=== PATIENT | female | born 1985 | race Caucasian/White ===

== ENCOUNTER 2016-07-08 10:10 | Inpatient (IN) | payer OTHER ==
[~2016-07-08 10:10] MED LIST: CLAR10TA7 PO; METO10TA PO; PREN0.01 PO; PYRI1TAB5 PO
[2016-07-12] VITALS (15 sets, daily range): BP systolic 135–149; BP diastolic 71–98; PULSE 67–98; RESP 8–20; TEMP 97.9–99; O2SAT 98–100
[2016-07-12 11:27] LABS: AUTOMATED NEUTROPHIL # 6.5 TH/MM3 (1.8-7.7); BASOPHIL % 0.4 % (0.0-2.0); EOSINOPHIL % 0.3 % (0.0-4.0); HEMATOCRIT 29.9 % (35.0-46.0); HEMO FLAGS DIFF FINAL; LYMPH % 17.7 % (9.0-44.0); LYMPHOCYTE # 1.5 TH/MM3 (1.0-4.8); MEAN CELL VOLUME 87.1 FL (80.0-100.0); MEAN CORPUSCULAR HEMOGLOBIN 29.9 PG (27.0-34.0); MEAN CORPUSCULAR HGB CONC 34.4 % (32.0-36.0); MONO % 6.9 % (0.0-8.0); NEUT % 74.7 % (16.0-70.0); PLATELET COUNT 293 TH/MM3 (150-450); RED BLOOD COUNT 3.43 MIL/MM3 (4.00-5.30); RED CELL DISTRIBUTION WIDTH 12.8 % (11.6-17.2); WHITE BLOOD COUNT 8.7 TH/MM3 (4.0-11.0)
[2016-07-12] MEDS ORDERED: LACTATED RINGER'S 1000 ML INJ 1,000 ML IV ONE (11:28)
[2016-07-12 11:40] LABS: BACTERIA, URINE OCC /hpf; BLOOD, URINE NEG (NEG); COMMENT (UR) CULT NOT INDICATED; CULTURE IF INDICATED CULT NOT INDICATED; GLUCOSE,URINE NEG (NEG); KETONE, URINE 40 mg/dL (NEG); MUCUS URINE FEW /lpf (OCC); NITRITE,URINE NEG (NEG); PH, URINE 6.5 (5.0-8.5); SQUAMOUS EPITHELIAL CELL URINE 1 /hpf (0-5); URINE COLOR YELLOW (YELLW/STRAW)
[2016-07-12] MEDS ORDERED: LACTATED RINGER'S 1000 ML INJ 1,000 ML IV SCH ×2 (11:58→19:31)
[2016-07-12] MEDS ORDERED: ceFAZolin 2 GM PREMIX 50 ML IV SCH (12:30)
[2016-07-12] MEDS ORDERED: CITRIC ACID-SODIUM CITRATE LIQ 30 ML UDC PO SCH (13:00)
[2016-07-12] MEDS ORDERED: ACETAMINOPHEN 1000 MG/100 ML VIAL IV ONE (13:22)
[2016-07-12] MEDS ORDERED: MORPHINE SULFATE PF 5 MG/10 ML VIAL ONE (13:22)
[2016-07-12] MEDS ORDERED: OXYTOCIN 10 UNIT/ML AMP ONE (13:22)
[2016-07-12] MEDS ORDERED: EPIDURAL-NALOXONE HCL 0.4 MG/ML AMP IV PRN (13:23)
[2016-07-12] MEDS ORDERED: EPIDURAL-DO NOT ADMINISTER ANTICOAGULANTS PRN (13:23)
[2016-07-12] MEDS ORDERED: EPIDURAL-DIPHENHYDRAMINE HCL 50 MG/ML VIAL IV PUSH PRN (13:23)
[2016-07-12] MEDS ORDERED: EPIDURAL-DIPHENHYDRAMINE HCL 50 MG CAP PO PRN (13:23)
[2016-07-12] MEDS ORDERED: EPIDURAL-NO SYSTEMIC NARCOTICS PRN (13:23)
--- NOTE | 2016-07-12 14:30 | PD.OB.DELI ---
Procedure Note Section Procedure Pre Op Diagnosis: (1) History of classical section (2) 37 weeks gestation of Post Op Diagnosis: (1) History of classical section (2) 37 weeks gestation of Performed by Bruce Ng Procedure: Repeat Low Transverse Sec Indication for delivery: Desired elective repeat Informed consent obtained: For anesthesia, For procedure Confirmed correct: Patient, Procedure, Time-out taken Anesthesia: Spinal Urinary catheter: Inserted using sterile technique, To dependent drainage Sterile preparation: Duraprep Position: Supine with wedge to left side Operative Features Skin Incision: Pfannenstiel Uterine Incision: Low transverse w/knife / blunt ext Membranes Ruptured: Artificially Presentation: Occiput anterior Delivery of : Assisted (vacuum), Uneventful : Male, Single One Minute : 9 Five Minute : 9 Weight: 6#15 Status of : Viable Placenta delivered: Intact Medications: Antibiotics Estimated blood loss: 300 Procedure tolerated: Well Maternal Condition: Stable Condition: Stable Bruce Ng MD Jul 12, 2016 14:30
[2016-07-12] MEDS ORDERED: SODIUM CHLORIDE 0.9% FLUSH 10 ML FLUSH IV FLUSH PRN (14:45)
[2016-07-12] MEDS ORDERED: SIMETHICONE 80 MG CHEWABLE TAB PO PRN (14:45)
[2016-07-12] MEDS ORDERED: OXYTOCIN 30 UNITS-500ML PREMIX 500 ML IV ONE (14:45)
[2016-07-12] MEDS ORDERED: ACETAMINOPHEN/HYDROcodone 325 MG/5 MG TAB PO PRN (14:45)
[2016-07-12] MEDS ORDERED: KETOROLAC TROMETHAMINE 60 MG/2 ML (IM) VIAL IM PRN (14:45)
[2016-07-12] MEDS ORDERED: OXYTOCIN 30 UNITS-500ML PREMIX 500 ML ONE (15:11)
[2016-07-12] MEDS: IBUPROFEN 600 MG TAB PO PRN (22:43)
[2016-07-12] MEDS: ACETAMINOPHEN/HYDROcodone 325 MG/5 MG TAB PO PRN (22:43)
[2016-07-13 00:15] VITALS: BP 121/70; PULSE 67; RESP 18; TEMP 98.2
[2016-07-13] MEDS ORDERED: OXYTOCIN 30 UNITS-500ML PREMIX 500 ML IV PRN (00:45)
[2016-07-13 04:30] VITALS: BP 123/73; PULSE 74; RESP 18; TEMP 98.2
[2016-07-13] MEDS: IBUPROFEN 600 MG TAB PO PRN ×4 (04:47→23:16)
[2016-07-13] MEDS: ACETAMINOPHEN/HYDROcodone 325 MG/5 MG TAB PO PRN ×5 (04:47→22:01)
[2016-07-13 07:02] LABS: AUTOMATED NEUTROPHIL # 12.4 TH/MM3 (1.8-7.7); BASOPHIL % 0.2 % (0.0-2.0); EOSINOPHIL % 0.1 % (0.0-4.0); HEMATOCRIT 29.1 % (35.0-46.0); HEMO FLAGS DIFF FINAL; LYMPH % 11.9 % (9.0-44.0); LYMPHOCYTE # 1.9 TH/MM3 (1.0-4.8); MEAN CORPUSCULAR HEMOGLOBIN 29.6 PG (27.0-34.0); MEAN CORPUSCULAR HGB CONC 33.7 % (32.0-36.0); MONO % 9.2 % (0.0-8.0); NEUT % 78.6 % (16.0-70.0); PLATELET COUNT 272 TH/MM3 (150-450); RED BLOOD COUNT 3.31 MIL/MM3 (4.00-5.30); RED CELL DISTRIBUTION WIDTH 12.2 % (11.6-17.2); WHITE BLOOD COUNT 15.8 TH/MM3 (4.0-11.0)
[2016-07-13 08:50] VITALS: BP 121/75; PULSE 70; RESP 18; TEMP 98.3
[2016-07-13] MEDS: SODIUM CHLORIDE 0.9% FLUSH 10 ML FLUSH IV FLUSH SCH (09:57)
--- NOTE | 2016-07-13 10:32 | HHI.HP ---
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 Para: 1 : 2 History Past Medical History Medical History: Denies Significant Hx Past Surgical History Narrative Surgical Classical CS Surgical History: No Previous Surgery Family History Family History: Negative Social History Alcohol Use: No Tobacco Use: No Substance Abuse: No Allergies-Medications (Allergen,Severity, Reaction): Coded Allergies: Percocet (Verified Allergy, Unknown, GI UPSET/HIVES , 07/12/16) Home Meds Reported Medications Pyridoxine HCl (B6 Natural)100 Mg Tab1 Tab PO DAILY 04/04/14 Multivit/Min/Fol Ac/Iron/Pren ( Vit ( Plus)) Tab1 Tab PO DAILY 04/04/14 Loratadine (Claritin)10 Mg Tab10 Mg PO DAILY 04/04/14 Metoclopramide Hcl (Reglan)10 Mg Tab10 Mg PO PRN (NAUSEA) 04/04/14 Review of Systems Except as stated in HPI: all other systems reviewed are Neg Physical Exam Vital Signs Date Time Temp Pulse Resp B/P Pulse Ox O2 Delivery O2 Flow Rate FiO2 07/13/16 08:50 98.3 70 18 121/75 07/13/16 04:30 98.2 74 18 123/73 07/13/16 00:15 98.2 07/13/16 00:15 67 18 121/70 07/12/16 19:45 98.3 71 18 139/86 07/12/16 16:07 99.0 07/12/16 15:24 97.9 07/12/16 15:17 76 18 139/92 99 07/12/16 15:01 70 18 143/90 98 07/12/16 14:46 72 8 98 07/12/16 14:46 18 07/12/16 14:45 67 136/71 07/12/16 14:34 74 18 139/86 100 07/12/16 14:25 18 07/12/16 14:22 91 138/95 99 07/12/16 14:22 98.0 07/12/16 13:00 93 149/90 07/12/16 12:30 88 143/96 3/31/17 12:05 20 07/12/16 12:00 89 135/91 07/12/16 11:30 98 137/98 Narrative GENERAL: Well-nourished, well-developed patient. SKIN: Warm and dry. HEAD: Normocephalic and atraumatic. EYES: No scleral icterus. No injection or drainage. ENT: No nasal drainage noted. Mucous membranes pink. Airway patent. NECK: Supple, trachea midline. No JVD. CARDIOVASCULAR: Regular rate and rhythm without murmurs, gallops, or rubs. RESPIRATORY: Breath sounds equal bilaterally. No accessory muscle use. BREASTS: Bilateral exam showed no masses , no retractions, no nipple discharge. ABDOMEN/GI: Abdomen soft, non-tender, bowel sounds present, no rebound, no guarding Gravid to [-] weeks size Fundal Height: [-] GENITOURINARY: External Genitalia: intact and normal in appearance BUS glands: [-] Cervix: [-] Dilatation: [-] Effacement: [-] Station: [-] Presentation: [-] Membranes: [intact or ruptured] Uterine Contractions: [-] FHT's: Category: [-] Baseline: [-] Reactive: [-] Variability: [-] Decels: [-] EXTREMITIES: No cyanosis or edema. BACK: Nontender without obvious deformity. No CVA tenderness. NEUROLOGICAL: Awake and alert. Motor and sensory grossly within normal limits. Five out of 5 muscle strength in all muscle groups. Normal speech. Data Data Vital Signs Reviewed: Yes Orders Complete Blood Count With Diff (07/12/16 11:09) Type And Screen (07/12/16 11:09) Urinalysis - C+S If Indicated (07/12/16 11:09) Specimen To Be Collected PRN (07/12/16 11:09) Admit To Inpatient (07/12/16 ) Code Status (07/12/16 11:28) Vital Signs (Adult) .ON ADMISSION (07/12/16 11:28) Activity Oob Ad Sadie (07/12/16 11:28) ^ Heart (07/12/16 11:28) Urinary Catheter Management PILAR.Q8H (07/12/16 11:28) ^ Preps (07/12/16 11:28) Scd / Yassine / Foot Pump PILAR.QSHIFT (07/12/16 11:28) ^ Ultrasound For Locatio (07/12/16 11:28) Diet Npo (07/12/16 Lunch) Lactated Ringer's 1000 Ml Inj (Lr 1000 M (07/12/16 11:28) Lactated Ringer's 1000 Ml Inj (Lr 1000 M (07/12/16 11:58) Cefazolin 2 Gm Premix (Ancef 2 Gm Premix (07/12/16 12:30) Citric Acid-Sodium Citrate Liq (Bicitra (07/12/16 13:00) Inpatient Certification (07/12/16 ) Morphine Pf Inj (Duramorph Pf 0.5 Mg/Ml (07/12/16 13:22) Oxytocin Inj (Pitocin Inj) (07/12/16 13:22) Acetaminophen Inj (Ofirmev Inj) (07/12/16 13:22) Vital Signs (Adult) Q4HX24,Q12H (07/12/16 14:31) Activity Bed Rest (07/12/16 14:31) ^ Discontinue (07/13/16 14:31) ^ Remove Dressing (07/13/16 14:31) ^ Rhogam (07/12/16 14:31) Lactated Ringer's 1000 Ml Inj (Lr 1000 M (07/12/16 19:31) Oxytocin 30 Units-500ml Premix (Pitocin (07/12/16 14:45) Oxytocin 30 Units-500ml Premix (Pitocin (07/13/16 00:45) Sodium Chloride 0.9% Flush (Ns Flush) (07/12/16 21:00) Sodium Chloride 0.9% Flush (Ns Flush) (07/12/16 14:45) Simethicone Chew (Mylicon Chew) (07/12/16 14:45) Ibuprofen (Motrin) (07/12/16 14:45) Ketorolac Inj (Toradol Inj) (07/12/16 14:45) Rtnblfg-Hsyvv-Osiacro Inj (M-M-R Ii Inj) (07/13/16 16:00) Xgyv-Vie-Vvqogh (Booster) Inj (Boostrix (07/13/16 16:00) Complete Blood Count With Diff (07/13/16 06:00) Remove Urinary Catheter .ONCE (07/13/16 14:31) Acetamin-Hydrocod 325-5 Mg ([place] 5-325 (07/12/16 14:45) Acetamin-Hydrocod 325-5 Mg ([place] 5-325 (07/12/16 14:45) Oxytocin 30 Units-500ml Premix (Pitocin (07/12/16 15:11) [facility] [place] [facility] [place] (07/12/16 13:23) Naloxone Inj (Narcan Inj) (07/12/16 13:23) Diphenhydramine Inj (Benadryl Inj) (07/12/16 13:23) Diphenhydramine (Benadryl) (07/12/16 13:23) [facility] [place] [facility] [place] (07/12/16 13:23) Diet Regular Basic (07/12/16 Dinner) ^ Instruction (07/12/16 16:57) Labs Laboratory Tests Test 07/12/16 07/13/16 11:05 06:28 White Blood Count 8.7 15.8 Red Blood Count 3.43 3.31 Hemoglobin 10.3 9.8 Hematocrit 29.9 29.1 Mean Corpuscular Volume 87.1 88.0 Mean Corpuscular Hemoglobin 29.9 29.6 Mean Corpuscular Hemoglobin 34.4 33.7 Concent Red Cell Distribution Width 12.8 12.2 Platelet Count 293 272 Mean Platelet Volume 7.4 7.4 Neutrophils (%) (Auto) 74.7 78.6 Lymphocytes (%) (Auto) 17.7 11.9 Monocytes (%) (Auto) 6.9 9.2 Eosinophils (%) (Auto) 0.3 0.1 Basophils (%) (Auto) 0.4 0.2 Neutrophils # (Auto) 6.5 12.4 Lymphocytes # (Auto) 1.5 1.9 Monocytes # (Auto) 0.6 1.4 Eosinophils # (Auto) 0.0 0.0 Basophils # (Auto) 0.0 0.0 CBC Comment DIFF FINAL DIFF FINAL Differential Comment Urine Color YELLOW Urine Turbidity CLEAR Urine pH 6.5 Urine Specific [place] 1.017 Urine Protein TRACE Urine Glucose (UA) NEG Urine Ketones 40 Urine Occult Blood NEG Urine Nitrite NEG Urine Bilirubin NEG Urine Urobilinogen LESS THAN 2.0 Urine Leukocyte Esterase TRACE Urine RBC 1 Urine WBC 1 Urine Squamous Epithelial 1 Cells Urine Bacteria OCC Urine Mucus FEW Microscopic Urinalysis Comment CULT NOT INDICATED Blood Type A NEGATIVE Antibody Screen NEGATIVE Assessment/Plan Problem List: (1) 37 weeks gestation of (2) History of classical section Discharge Planning 2-3 days Bruce Ng MD Jul 13, 2016 10:32
--- NOTE | 2016-07-13 10:33 | HHI.OB ---
Subjective Post Day: 1 Remarks doing well Objective Vitals/I&O Vital Signs Date Time Temp Pulse Resp B/P Pulse Ox O2 Delivery O2 Flow Rate FiO2 07/13/16 08:50 98.3 70 18 121/75 07/13/16 04:30 98.2 74 18 123/73 07/13/16 00:15 98.2 07/13/16 00:15 67 18 121/70 07/12/16 19:45 98.3 71 18 139/86 07/12/16 16:07 99.0 07/12/16 15:24 97.9 07/12/16 15:17 76 18 139/92 99 07/12/16 15:01 70 18 143/90 98 07/12/16 14:46 72 8 98 07/12/16 14:46 18 07/12/16 14:45 67 136/71 07/12/16 14:34 74 18 139/86 100 07/12/16 14:25 18 07/12/16 14:22 91 138/95 99 07/12/16 14:22 98.0 07/12/16 13:00 93 149/90 07/12/16 12:30 88 143/96 07/12/16 12:05 20 07/12/16 12:00 89 135/91 07/12/16 11:30 98 137/98 Objective Remarks GENERAL: Well-nourished, well-developed patient. . ABDOMEN/GI: Abdomen soft, non-tender. Fundus: Firm, non-tender at umbilicus. GENITOURINARY: Light to moderate bleeding. EXTREMITIES: No cyanosis or edema, non-tender, without signs of DVT. Medications and IVs Current Medications Medications (Trade) Dose Ordered Sig/Trace Route Start Time Stop Time Status Last Admin (Lr 1000 ml Inj) 1,000 ml @ 100 mls/hr Q10H IV 07/12/16 19:31 07/13/16 15:30 (NS Flush) 2 ml BID IV FLUSH 07/12/16 21:00 (NS Flush) 2 ml UNSCH PRN IV FLUSH 07/12/16 14:45 (Mylicon Chew) 80 mg QID PRN PO 07/12/16 14:45 (Motrin) 600 mg Q6H PRN PO 3/31/17 14:45 07/13/16 04:47 (Toradol Inj) 30 mg Q6H PRN IM 07/12/16 14:45 07/13/16 14:44 07/12/16 17:00 (M-M-R Ii Inj) 0.5 ml ONCE ONCE SQ 07/13/16 16:00 07/13/16 16:01 (Boostrix Inj) 0.5 ml ONCE ONCE IM 07/13/16 16:00 07/13/16 16:01 ([place] 5-325 Mg) 1 tab Q4H PRN PO 07/12/16 14:45 07/13/16 08:36 ([place] 5-325 Mg) 2 tab Q4H PRN PO 07/12/16 14:45 Miscellaneous Information NO SYSTEMIC NARCOTICS TO BE GIVEN FO... UNSCH PRN .XX 07/12/16 13:23 07/13/16 13:22 (Narcan Inj) 0.4 mg UNSCH PRN IV 07/12/16 13:23 07/13/16 13:22 (Benadryl Inj) 25 mg Q6H PRN IV PUSH 07/12/16 13:23 07/13/16 13:22 (Benadryl) 50 mg Q6H PRN PO 07/12/16 13:23 07/13/16 13:22 Miscellaneous Information ALL NURSING DEPARTMENTS UNSCH PRN .XX 07/12/16 13:23 07/13/16 13:22 Assessment/Plan Problem List: (1) 37 weeks gestation of (2) History of classical section Discharge Planning 2-3 days Bruce Ng MD Jul 13, 2016 10:33
[2016-07-13] MEDS ORDERED: MEASLES, MUMPS, RUBELLA VACCINE 0.5 ML VIAL SQ ONE (16:00)
[2016-07-13] MEDS ORDERED: DIPHTH/TETANUS/ACEL PERTUSSIS (BOOSTER) 0.5 ML VIAL/PFS IM ONE (16:00)
[2016-07-13 16:10] VITALS: BP 134/77; PULSE 86; RESP 16; TEMP 98.1
[2016-07-13] MEDS: DOCUSATE SODIUM 50 MG/SENNA 8.6 MG TAB PO PRN (17:06)
[2016-07-13 20:30] VITALS: BP 150/94; PULSE 68; RESP 16; TEMP 97.7
[2016-07-13 21:18] VITALS: BP 141/90; PULSE 72
[2016-07-14] MEDS: ACETAMINOPHEN/HYDROcodone 325 MG/5 MG TAB PO PRN ×6 (02:38→22:32)
[2016-07-14] MEDS: IBUPROFEN 600 MG TAB PO PRN ×3 (06:36→18:31)
[2016-07-14 08:25] VITALS: BP 143/88; PULSE 69; RESP 18; TEMP 97.4
[2016-07-14] MEDS: SODIUM CHLORIDE 0.9% FLUSH 10 ML FLUSH IV FLUSH SCH (09:00)
--- NOTE | 2016-07-14 10:46 | HHI.OB ---
Subjective Post Day: 2 Remarks doing well Objective Vitals/I&O Vital Signs Date Time Temp Pulse Resp B/P Pulse Ox O2 Delivery O2 Flow Rate FiO2 07/14/16 08:25 97.4 69 18 143/88 07/13/16 21:18 72 141/90 07/13/16 20:30 150/94 07/13/16 20:30 97.7 68 16 07/13/16 16:10 98.1 86 16 134/77 Objective Remarks GENERAL: Well-nourished, well-developed patient. . ABDOMEN/GI: Abdomen soft, non-tender. Fundus: Firm, non-tender at umbilicus. GENITOURINARY: Light to moderate bleeding. EXTREMITIES: No cyanosis or edema, non-tender, without signs of DVT. Medications and IVs Current Medications Medications (Trade) Dose Ordered Sig/Trace Route Start Time Stop Time Status Last Admin (NS Flush) 2 ml BID IV FLUSH 07/12/16 21:00 (NS Flush) 2 ml UNSCH PRN IV FLUSH 07/12/16 14:45 (Mylicon Chew) 80 mg QID PRN PO 07/12/16 14:45 07/13/16 17:07 (Motrin) 600 mg Q6H PRN PO 07/12/16 14:45 07/14/16 06:36 ([place] 5-325 Mg) 1 tab Q4H PRN PO 07/12/16 14:45 07/14/16 10:36 ([place] 5-325 Mg) 2 tab Q4H PRN PO 07/12/16 14:45 07/13/16 18:05 (Deanna-Colace) 2 tab Q12H PRN PO 07/13/16 17:00 07/13/16 17:06 Assessment/Plan Problem List: (1) 37 weeks gestation of (2) History of classical section Attending Attestation in am Bruce Ng MD Jul 14, 2016 10:46
[2016-07-14] MEDS: DOCUSATE SODIUM 50 MG/SENNA 8.6 MG TAB PO PRN ×2 (10:49→22:29)
[2016-07-14 16:20] VITALS: BP 148/97; PULSE 75; RESP 18; TEMP 98.4
[2016-07-14 20:37] VITALS: BP 136/88; PULSE 81; RESP 17; TEMP 98.1
--- NOTE | 2016-07-14 22:46 | HHI.DCPOC ---
Discharge Care Plan Diagnosis: (1) delivery delivered Report Symptoms to Your Doctor -Temperate above 100.5 degrees -Redness, of incision or excessive or foul smelling drainage -Unusual pain or calf pain -Increased vaginal bleeding -Painful or difficulty urinating -Feelings of extreme sadness or anxiety after 2 weeks Goals to Promote Your Health * To prevent worsening of your condition and complications * To maintain your health at the optimal level Directions to Meet Your Goals Take your medications as prescribed Follow your dietary instruction Follow activity as directed Ensure plenty of rest for recovery Drink fluids for hydration Keep your appointments as scheduled Take your immunizations and boosters as scheduled If your symptoms worsen call your PCP, if no PCP go to Urgent Care Center or Emergency Room Smoking is Dangerous to Your Health. Avoid second hand smoke Call the 24-hour crisis hotline for domestic abuse at Bruce Ng MD Jul 14, 2016 22:46
[2016-07-15] MEDS: IBUPROFEN 600 MG TAB PO PRN ×2 (03:05→09:41)
[2016-07-15] MEDS: ACETAMINOPHEN/HYDROcodone 325 MG/5 MG TAB PO PRN ×2 (03:05→07:38)
[2016-07-15] MEDS: SODIUM CHLORIDE 0.9% FLUSH 10 ML FLUSH IV FLUSH SCH (07:44)
--- NOTE | 2016-07-15 07:50 | HHI.OB ---
Subjective Post Day: 3 Remarks doing well slight asymptomatic elevation in BP, consistent with end of Objective Vitals/I&O Vital Signs Date Time Temp Pulse Resp B/P Pulse Ox O2 Delivery O2 Flow Rate FiO2 07/14/16 20:37 81 136/88 07/14/16 20:37 98.1 17 07/14/16 16:20 98.4 75 18 148/97 07/14/16 08:25 97.4 69 18 143/88 Objective Remarks GENERAL: Well-nourished, well-developed patient. . ABDOMEN/GI: Abdomen soft, non-tender. Fundus: Firm, non-tender at umbilicus. GENITOURINARY: Light to moderate bleeding. EXTREMITIES: No cyanosis or edema, non-tender, without signs of DVT. Medications and IVs Current Medications Medications (Trade) Dose Ordered Sig/Trace Route Start Time Stop Time Status Last Admin (NS Flush) 2 ml BID IV FLUSH 07/12/16 21:00 (NS Flush) 2 ml UNSCH PRN IV FLUSH 07/12/16 14:45 (Mylicon Chew) 80 mg QID PRN PO 07/12/16 14:45 07/13/16 17:07 (Motrin) 600 mg Q6H PRN PO 07/12/16 14:45 07/15/16 03:05 ([place] 5-325 Mg) 1 tab Q4H PRN PO 07/12/16 14:45 07/15/16 07:38 ([place] 5-325 Mg) 2 tab Q4H PRN PO 07/12/16 14:45 07/13/16 18:05 (Deanna-Colace) 2 tab Q12H PRN PO 07/13/16 17:00 07/14/16 22:29 Assessment/Plan Problem List: (1) 37 weeks gestation of (2) History of classical section Discharge Planning dc today Bruce Ng MD Jul 15, 2016 07:50
[2016-07-15] MEDS ORDERED: IBUP-232 PO (07:52)
[2016-07-15] MEDS ORDERED: HYDR-3533 PO (07:52)
--- NOTE | 2016-07-15 07:54 | HHI.DS ---
Admission Date Jul 12, 2016 at 10:26 Discharge Date: Jul 15, 2016 Admitting Diagnosis Diagnosis: (1) Bicornuate uterus during , delivered Diagnosis: Principal (2) delivery delivered Diagnosis: Principal (3) 37 weeks gestation of Diagnosis: Secondary : Repeat : Male, Single Brief History for CS repeat at 37 weeks because of classical CS with unicornuate uterus Hospital Course doing well pain controlled dc hme ppd #3 Pt Condition on Discharge: Good Discharge Disposition: Discharge Home Discharge Instructions Diet Instructions: As Tolerated, No Restrictions Activities You Can Perform: Pelvic Rest Activities to Avoid: Driving for 24 hrs Follow up Referrals: PHARMACEUTICAL ANALYST - 2 Weeks @ [facility] with Bruce Ng MD New Medications: Hydrocodone-Acetaminophen (Lortab) 5-325 Mg Tab 1-2 TAB PO Q6H PRN PAIN #30 Ref 0 TAB Ibuprofen (Ibuprofen) 600 Mg Tab 600 MG PO Q6H PRN CRAMPING #30 TAB Discontinued Medications: Loratadine (Claritin) 10 Mg Tab 10 MG PO DAILY TAB Metoclopramide Hcl (Reglan) 10 Mg Tab 10 MG PO PRN NAUSEA TAB Multivit/Min/Fol Ac/Iron/Pren ( Vit ( Plus)) Tab 1 TAB PO DAILY TAB Pyridoxine HCl (B6 Natural) 100 Mg Tab 1 TAB PO DAILY Bruce Ng MD Jul 15, 2016 07:54
[2016-07-15 08:30] VITALS: PULSE 84; RESP 16
[2016-07-15 08:40] VITALS: BP 146/91
--- NOTE | 2016-07-16 18:10 | MP ---
cc: CHRIS NG M.D. DATE OF SURGERY: 07/12/2016 PROCEDURE: Repeat low transverse section. PREOPERATIVE DIAGNOSIS Previous classical section currently 37 weeks . POSTOPERATIVE DIAGNOSIS Previous classical section currently [address] Chris Ng ESTIMATED BLOOD LOSS 300 cc. 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 PROCEDURE IN DETAIL After informed consent the patient was taken to the operating room where she was placed under spinal anesthesia, placed in supine position, left lateral tilt. The vagina, perineum and vagina prepped and draped in normal sterile fashion. After adequate anesthesia assured and a time out was taken, Pfannenstiel skin incision was carried sharply to the skin to the fascia. The fascia nicked in the midline. The incision was carried laterally using Stallings scissors. The rectus muscles dissected off the fascia with sharp and blunt dissection. The peritoneum was entered bluntly with a finger. The incision was extended laterally using blunt traction. The bladder blade was placed in the abdomen. A bladder flap was developed by dissecting the bladder of the lower uterine segment and then a low transverse uterine incision was made. The lower uterine segment was slightly thin from previous classical section. A hand was placed in the uterus. The 's head was guided through the incision using fundal pressure. We could not readily deliver the head, so a vacuum was applied to the occiput portion of the of the infant, with gentle traction for less than five seconds just to elevated the head, and the infant delivered with fundal pressure. A nuchal cord was reduced. The baby was delivered the remaining portion of the way. The cord was allowed to pulse for one minute prior to clamping it. We clamped it, cut it, and the infant was handed to pediatrics in attendance. Cord blood was collected. The placenta was delivered manually. The uterosacrals were exteriorized, wiped free from all remaining products of conception. The uterine incision was then closed with running locking stitch of chromic suture. Good hemostasis was achieved. The uterus placed back in the abdomen noted to be hemostatic. The peritoneum was closed with chromic suture. The fascia was closed with Vicryl suture, and the skin was closed with subcuticular stitch. Each layer was noted to be hemostatic prior to closure. The patient tolerated the procedure well. MD ALLISON Miranda/SHELIA /2:38 PM /5:39 PM
== END 2016-07-15 11:17 | disposition home or self-care (01) | DRG 766 ==
LOC: H2EB 07-12 10:26 → H1EA 07-12 15:52
PROVIDERS: ADMIT Obstetrics & Gynecology; ATTEND Obstetrics & Gynecology
PROC: 10D00Z1 Extraction of Products of Conception, Low, Open Approach (ICD-10-PCS; principal; 2016-07-12)
PROC: 10907ZC Drainage of Amniotic Fluid, Therapeutic from Products of Conception, Via Natural or Artificial Opening (ICD-10-PCS; 2016-07-12)
DX: O34.212 Maternal care for vertical scar from previous cesarean delivery (principal); O34.593 Maternal care for other abnormalities of gravid uterus, third trimester; Q51.3 Bicornate uterus; Z37.0 Single live birth; Z3A.37 37 weeks gestation of pregnancy
CPT/HCPCS: 59025; 81001; 85025; 86850; 86900; 86901; J0131; J0690; J1885; J2274; J2590; J7120

== ENCOUNTER 2017-02-21 09:29 | Emergency (ER) | payer OTHER ==
[~2017-02-21] VITALS: Ht 165.1 cm; Wt 60.0 kg
[~2017-02-21 09:29] MED LIST changes: -CLAR10TA7 PO; +HYDR-3533 PO; +IBUP-232 PO; -METO10TA PO; -PREN0.01 PO; -PYRI1TAB5 PO
[2017-02-21 09:42] VITALS: BP 134/65; PULSE 91; RESP 16; TEMP 98.3; O2SAT 98
[2017-02-21] MEDS ORDERED: PREN29TA PO (09:48)
[2017-02-21] MEDS ORDERED: BIOT10TA PO (09:48)
[2017-02-21] MEDS ORDERED: ADDE10XR PO (09:48)
[2017-02-21] MEDS ORDERED: CETI10CA3 PO (09:48)
--- NOTE | 2017-02-21 10:41 | PD ---
HPI Chief Complaint: Back/ Neck Pain or Injury Time Seen by Provider: 10:29 Travel History International Travel<30 days: No Contact w/Intl Traveler<30days: No Traveled to known affect area: No History of Present Illness HPI 31-year-old female female presents to emergency Department complaining of lumbar pain with radiation of pain down her left leg for 1 day. States she was lifting her baby yesterday morning and felt an instant sharp pain in her lower back. She came in today because it is worsening. Back flexion and rest decrease pain, extension and walking increases pain. She has radiation of her pain from her lower left back to her left leg down to her toes that is positional. Muscle relaxers did not help relieve her pain. Patient denies fever , chills, history of drug use, personal history cancer, loss of bowel or bladder function. Patient is never had this problem before. Of note patient had in June of this year. Otherwise denies chronic medical history. PFSH Past Medical History ?: Not : 1 Past Surgical History Neurologic Surgery: Yes (UTERINE FIBROID REMOVED) Other Surgery: Yes (DEVIATED SEPTUM REPAIR) Social History Alcohol Use: No Tobacco Use: No Substance Use: No Allergies-Medications (Allergen,Severity, Reaction): Coded Allergies: acetaminophen (Unverified Allergy, Unknown, GI UPSET/HIVES , 02/21/17) oxycodone (Unverified Allergy, Unknown, GI UPSET/HIVES , 02/21/17) Reported Meds & Prescriptions Reported Meds & Active Scripts Active Zofran (Ondansetron HCl) 4 Mg Tab 4 Mg PO Q8HR PRN 5 Days Medrol Dosepak (Methylprednisolone) 4 Mg Dspk 4 Mg PO DIRECTED Per Pharmacist direction Tramadol (Tramadol HCl) 50 Mg Tab 50 Mg PO Q8H PRN 3 Days Reported Biotin 10 Mg Tab 10 Mg PO DAILY Plus Iron 29-1 mg ( Vit-Iron Carbonyl) 29 Mg Iron-1 Mg Tab 1 Tab PO DAILY Zyrtec (Cetirizine HCl) 10 Mg Capsule 1 Cap PO DAILY Adderall Xr 24 HR (Amphetamine/Dextroamphetamine) 10 Mg Cap 10 Mg PO DAILY Once daily in the morning. Review of Systems Except as stated in HPI: all other systems reviewed are Neg Physical Exam Narrative GENERAL: Well-developed well-nourished in mild distress, antalgic gait second due to pain SKIN: Focused skin assessment warm/dry. HEAD: Atraumatic. Normocephalic. EYES: Pupils equal and round. No scleral icterus. No injection or drainage. ENT: No nasal bleeding or discharge. Mucous membranes pink and moist. NECK: Trachea midline. No JVD. No midline tenderness CARDIOVASCULAR: Regular rate and rhythm. No murmur appreciated. RESPIRATORY: No accessory muscle use. Clear to auscultation. Breath sounds equal bilaterally. GASTROINTESTINAL: Abdomen soft, non-tender, nondistended. Hepatic and splenic margins not palpable. BACK: No CVA tenderness. No rash. No point tenderness on palpation of the spine. Mild TTP to lateral paraspinous muscles. Neurovascularly intact MUSCULOSKELETAL: No obvious deformities. No clubbing. No cyanosis. No edema. NEUROLOGICAL: Awake and alert. No obvious cranial nerve deficits. Motor grossly within normal limits. Normal speech. PSYCHIATRIC: Appropriate mood and affect; insight and judgment normal. Data Data Last Documented VS Vital Signs Date Time Temp Pulse Resp B/P (MAP) Pulse Ox O2 Delivery O2 Flow Rate FiO2 02/21/17 11:51 17 02/21/17 09:42 98.3 91 134/65 (88) 98 Orders Orders Ketorolac Inj (Toradol Inj) (02/21/17 10:45) Methylprednisolone So Succ Inj (Solumedr (02/21/17 10:45) Spine, Lumbar - Ltd (Ap & Lat) (02/21/17 ) Sacroiliac Joints, Bilateral (02/21/17 ) Ed Urine Pregnancytest Poc (02/21/17 10:38) Ondansetron Odt (Zofran Odt) (02/21/17 11:45) Acetamin-Hydrocod 325-5 Mg ([place] 5-325 (02/21/17 11:45) Ed Discharge Order (02/21/17 11:54) MDM Medical Decision Making Medical Screen Exam Complete: Yes Emergency Medical Condition: Yes Differential Diagnosis Acute lumbago with sciatica versus lumbar fracture versus muscle spasms Narrative Course 31-year-old female female presents to emergency Department complaining of lumbar pain with radiation of pain down her left leg for 1 day. States she was lifting her baby yesterday morning and felt a sharp pain in her lower back. She came in today because it is worsening. Back flexion and rest decrease pain, extension and walking increases pain. She has radiation of her pain from her lower back to her left leg down to her toes that is positional. Muscle relaxers did not help relieve her pain. Patient denies head trauma, falls, fever, chills , history of drug use, personal history cancer, loss of bowel or bladder function. Patient is never had this problem before. Of note patient had C- section in June of this year. Otherwise denies chronic medical history. Physical exam demonstrates a nontoxic appearing 31-year-old female in moderate distress. Patient has an abnormal gait with that is associated with pain. Neurovascularly intact No red flags. X-rays obtained for patient reassurance- no acute process Vital signs stable. SoluMedrol, Toradol, Zofran and hydrocodone administered for symptom relief Patient discharged Medrol Dosepak, tramadol, and Zofran Past to follow up with her primary care physician Return for worsening or persistent symptoms Diagnosis Primary Impression: Lumbago Qualified Codes: M54.42 - Lumbago with sciatica, left side Referrals: Primary Care Physician Additional Instructions: Perform light stretches of the lower back and legs, and alternate heat and ice packs. If you develop increased pain, weakness, fever, chills, or bowel or bladder issues, return to the ED for further treatment and evaluation. Follow up with your primary care physician in 2-3 days. Take medications as prescribed Scripts Ondansetron (Zofran) 4 Mg Tab 4 MG PO Q8HR Y for NAUSEA OR VOMITING for 5 Days, TAB 0 Refills Prov: West Pope MD 02/21/17 Methylprednisolone Dosepak (Medrol Dosepak) 4 Mg Dspk 4 MG PO DIRECTED, #1 DSPK 0 Refills Per Pharmacist direction Prov: West Pope MD 02/21/17 Tramadol (Tramadol) 50 Mg Tab 50 MG PO Q8H Y for PAIN for 3 Days, #9 TAB 0 Refills Prov: West Pope MD 02/21/17 Disposition: 01 DISCHARGE HOME Condition: Stable Vanessa Curran Feb 21, 2017 10:41
[2017-02-21] MEDS ORDERED: KETOROLAC TROMETHAMINE 60 MG/2 ML (IM) VIAL IM ONE (10:45)
[2017-02-21] MEDS ORDERED: methylPREDNISolone SOD SUCC 125 MG/2 ML VIAL IM ONE (10:45)
--- NOTE | 2017-02-21 11:32 | RADRPT ---
EXAM DATE/TIME: 02/21/2017 10:44 [facility] COMPARISON: No previous studies available for comparison. INDICATIONS : Low pain pain with pain radiating down left leg MEDICAL HISTORY : None. SURGICAL HISTORY : Csections ENCOUNTER: Initial ACUITY: 2 days PAIN SCORE: 6/10 LOCATION: Lumbar spine FINDINGS: Frontal and oblique views of the SI joints were performed. There is a symmetric appearance to the SI joints, without evidence of sclerosis or bridging osteophytes. CONCLUSION: Negative Humberto Piper MD FACR on February 21, 2017 at 11:30 Board Certified Radiologist. This report was verified electronically.
--- NOTE | 2017-02-21 11:35 | RADRPT ---
EXAM DATE/TIME: 02/21/2017 10:44 [facility] COMPARISON: No previous studies available for comparison. INDICATIONS : Low pain back with pain radiating down left leg MEDICAL HISTORY : None. SURGICAL HISTORY : Csections ENCOUNTER: Initial ACUITY: 2 days PAIN SCORE: 6/10 LOCATION: Lumbar spine FINDINGS: Two view examination was performed. There are five non-rib bearing vertebral bodies. Minimal levosco liosis of the lumbar spine which may be positional. The disc spaces are maintained. The pedicles ar e intact. Bony mineralization is normal. No fracture is identified. Well-corticated sclerotic area projecting over the posterior aspect the L5 vertebral body appears to be related to superimposition o f the transverse processes at this level. No focal lesion identified on frontal projection. Surgical clips in the right upper abdominal quadrant are characteristic of prior cholecystectomy. CONCLUSION: 1. Minimal levoscoliosis of the lumbar spine may be positional. 2. Well-corticated density projecting over the mid posterior aspect of the L5 vertebral body I believ e represents superimposition of the normal transverse processes. No focal lesions. 3. Otherwise negative. No significant degenerative changes. Catracho Ortega MD on February 21, 2017 at 11:30 Board Certified Radiologist. This report was verified electronically.
[2017-02-21] MEDS ORDERED: ONDANSETRON ODT 4 MG TAB PO ONE (11:45)
[2017-02-21] MEDS ORDERED: ACETAMINOPHEN/HYDROcodone 325 MG/5 MG TAB PO ONE (11:45)
[2017-02-21] MEDS ORDERED: ZOFR4TAB PO (11:50)
[2017-02-21] MEDS ORDERED: MEDR4PAK PO (11:50)
[2017-02-21] MEDS ORDERED: TRAM50TA PO (11:50)
[2017-02-21 11:51] VITALS: RESP 17
== END 2017-02-21 12:24 | disposition home or self-care (01) ==
LOC: PHEFT 09:29
DX: M54.42 Lumbago with sciatica, left side (principal)
CPT/HCPCS: 72100; 72202; 84703; 96372; 99284; J1885; J2930